=== PATIENT | male | born 1980 | race Hispanic/Latino ===

== ENCOUNTER 2025-05-13 18:21 | Emergency (ER) | payer SELFPAY ==
[2025-05-13] MEDS ORDERED: Bacitracin 1 PK ONE (19:03)
[2025-05-13] MEDS ORDERED: Lidocaine 1% (PF) 30 ML VIAL ONE ×2 (19:04→19:18)
== END 2025-05-13 20:00 | disposition home or self-care (01) ==
LOC: NAV ERS 18:21
DX: S81.812A Laceration without foreign body, left lower leg, initial encounter (principal); W11.XXXA Fall on and from ladder, initial encounter; Y93.89 Activity, other specified
CPT/HCPCS: 99283